=== PATIENT | male | born 1960 | race Caucasian/White ===

== ENCOUNTER 2024-10-18 18:39 | Emergency (ER) | payer OTHER, MEDICARE ==
[~2024-10-18] VITALS: Ht 180.3 cm; Wt 123.9 kg
[2024-10-18 19:05] VITALS: TEMP 98.3
--- NOTE | 2024-10-18 19:24 | Physician Documentation ---
History of Present Illness ~ Chief Complaint: Knee Pain Stated Complaint: KNEE PAIN Time Seen by MD: 19:09 HPI This is a very pleasant 64-year-old gentleman who presented for evaluation of right leg pain and swelling for the last 24 hours. He recently had total knee arthroplasty done on [place] outside the [facility]. He was discharged, he was successfully doing physical therapy. Yesterday he was able to bend his knee to 90, he was able to ambulate with the assistance of a cane. Today he woke up and feels that he is tie swollen, he is experiencing pain as burning sensation on immediately thigh extending down into the knee. No particular palliating factors. Worse with range of motion and ambulation. No longer able to ambulate any reasonable distance. He is compliant with all his physical therapy and medications, he is taking apixaban. Denies any fever, chills, chest pain, difficulty breathing. Denies any nausea, vomiting, diarrhea, abdominal pain. No concern for tobacco, alcohol or illicit substances use. No prior history of DVT or PE. Medication Reconciliation Allergies: Coded Allergies: No Known Allergies (Unverified , 10/18/24) Review of Systems ROS 10 point review of systems was performed and unless noted above in HPI is negative for acute process/complaint. Physical Exam Vital Signs: Temperature: 98.3, Source: Oral, Heart Rate: 59, Respiratory Rate: 17, BP: 166/77, Pulse Oximetry: 98, Weight: 123.900 Physical Exam GENERAL: Awake, alert, oriented, GCS 15, no apparent distress, non-toxic appearing, answers questions, follows commands appropriately. Examined in triage, accompanied by HEENT: Atraumatic, normocephalic, pupils equal, extraocular muscles intact, sclerae anicteric, mucus membranes moist, oropharynx is clear, no stridor. NECK: supple, full active range of motion, trachea midline, no thyromegaly, no lymphadenopathy, no JVD. CARDIOVASCULAR: regular rate/rhythm, no murmurs/gallops/rubs, Pulses are 2+ in all extremities and symmetric. Capillary refill less than 2 seconds. PULMONARY: Nonlabored, good air movement ,no respiratory distress, speaking in full sentences, clear to auscultation bilaterally, no wheezing, no ronchi, no rales, no accessory muscle use. GASTROINTESTINAL: Soft, non-tender, non-distended, normal active bowel sounds, no organomegaly, no pulsatile masses, no CVA tenderness. NEUROLOGIC: Lucid with normal mental status. Normal facial symmetry. Moves all extremities symmetrically and with purpose. No truncal ataxia. Speech is fluid without evidence of dysarthria or aphasia, no focal deficits appreciated. MUSCULOSKELETAL: There is full range of motion of all extremities. There is no joint pain or joint swelling or joint erythema. There is no muscle pain or tenderness or swelling. EXTREMITIES: warm, well-perfused, no cyanosis, no clubbing, no edema, no acute deformities. Skin: warm, dry, no rashes or lesions, no jaundice, no petechiae orpurpura. No ecchymosis. PSYCHIATRIC: Normal affect, normal insight, normal concentration. Focused exam: [Right knee is examined. There is no appreciable swelling compared to contralateral side. No tenderness, no purulent discharge. Surgical dressing appears to be clean, dry, intact. Neurovascularly intact distally. I do not appreciate any erythema or calor.] Progress Progress Note EKG was obtained and interpreted by myself showing sinus rhythm of 60, normal RI interval, narrow QRS, no QT prolongation, normal axis, there is no STEMI, however this pronounced Q-wave in two and AVF. Results/Orders Results/Orders Orders - ZACHERY PETERSEN DO Culture Blood (10/18/24 19:09) Vl Venous (10/18/24 19:09) Ct Lower Extremity (10/18/24 21:40) Completed Orders - ZACHERY PETERSEN DO Electrocardiogram (10/18/24:) Cbc/Diff (10/18/24 19:) ESR (10/18/24 19:09) D-Dimer (10/18/24 19:09) C-Reactive Protein (10/18/24 19:09) Pt Inr (10/18/24 19:09) PTT (10/18/24 19:09) PBNP (10/18/24 19:09) MG (10/18/24 19:09) CMP (10/18/24 19:09) Hs Troponin I W Calculations (10/18/24 19:09) Hs Troponin I W Calculations (10/18/24 21:09) Lacticsepsis (10/18/24 19:09) Vl Venous (10/18/24 19:09) Ct Lower Extremity (10/18/24 21:40) CK (10/18/24 19:25) Iohexol 300mg/Ml 100ml Inj. (Omnipaque-3 (10/18/24 20:15) Vital Signs 10/18/24 10/18/24 10/18/24 10/18/24 19:05 20:59 21:54 22:00 Temp 98.3 Pulse 59 62 Resp 17 18 16 B/P (MAP) 166/77 144/58 (86) Pulse Ox 98 98 10/18/24 23:26 Pulse 58 Resp 16 B/P (MAP) 149/66 (93) Pulse Ox 96 Laboratory Tests Test 10/18/24 19:43 10/18/24 21:21 White Blood Count 9.3 Red Blood Count 3.75 L Hemoglobin 11.6 L Hematocrit 33.4 L Mean Corpuscular Volume 89.2 Mean Corpuscular Hemoglobin 30.9 Mean Corpuscular Hemoglobin Concent 34.6 Red Cell Distribution Width 13.7 Platelet Count 306 Mean Platelet Volume 7.5 Neutrophils (%) (Auto) 81.1 H Lymphocytes (%) (Auto) 9.3 L Monocytes (%) (Auto) 4.7 Eosinophils (%) (Auto) 4.1 Basophils (%) (Auto) 0.8 Neutrophils # (Auto) 7.6 Lymphocytes # (Auto) 0.9 L Monocytes # (Auto) 0.4 Eosinophils # (Auto) 0.4 Basophils # (Auto) 0.1 CBC Comment Erythrocyte Sedimentation Rate 38 H Prothrombin Time 10.0 INR International Normalized Ratio 1.0 Activated Partial Thromboplast Time 29 D-Dimer 10.22 H D-Dimer Comment Coagulation Comments Sodium Level 133 L Potassium Level 3.9 Chloride Level 95 L Carbon Dioxide Level 31.3 Anion Gap 7 L Blood Urea Nitrogen 15 Creatinine 0.91 Estimated GFR/1.73 m2 83 BUN/Creatinine Ratio 16.5 Glucose Level 100 Lactic Acid Level 0.6 Calcium Level 9.4 Magnesium Level 1.9 Total Bilirubin 0.7 Aspartate Amino Transf (AST/SGOT) 9 L Alanine Aminotransferase (ALT/SGPT) 20 Alkaline Phosphatase 87 Total Creatine Kinase 19 L Troponin I High Sensitivity 4 5 C-Reactive Protein 1.49 H Pro-B-Type Natriuretic Peptide 217 H Total Protein 7.7 Albumin 4.0 Globulin 3.7 Albumin/Globulin Ratio 1.1 Chemistry Comments Troponin I High Sens Percent Delta 25 Troponin I Hi Sens Absolute Change 1 Microbiology Date/Time Source Procedure Growth Status 10/18/24 19:45 Blood Arm Left Blood Culture - Preliminary NEGATIVE (LESS THAN 24 HOURS) Resulted Medical Decision Making Findings Facility Status: ED Holds, RME process The plan was discussed with the patient, who demonstrates clear understanding of the plan and is in agreement with the plan unless otherwise noted in the chart. All questions have been answered, all concerns were addressed unless otherwise documented. I was available throughout their ED stay for frequent reassessment and questions. Differential Diagnoses (considered and possible or likely): [Right lower extremity cellulitis, DVT, postoperative abscess, seroma, less likely os teomyelitis, less likely rhabdomyolysis or myositis.] ??Differential Diagnoses (considered and unlikely, not requiring evaluation currently): [No evidence of arterial occlusion, no evidence of neurologic damage] MDM Data Please see [facility] for the following: Independent Historians and external Records Re view. Historian: [Patient] Independent Historians: ?[] Medication Management: [Reviewed medication list] Social History and determinants: [Reviewed] Please see the body of the note for the following: Any independent interpretations of ECG, imaging studies. All vitals signs/haemodynamics, ordered tests were independently reviewed and interpreted by myself. Nursing triage complaint and vitals reviewed, additional nursing notes were reviewed as available and I agree unless otherwise noted or documented in contradiction in the chart Vital Signs: Independently reviewed Labs: Independently interpreted Imaging: Independently interpreted Old Medical Records: Independently reviewed, see [facility] for relevant summary and information Pulse Oximetry: [96%] interpreted as [normal on room air] by me [High Density Finishing Operator: [Regular Rate, Regular rhythm, no ectopy, NSR] reviewed and interpreted by me] Additionally notably showing: [Hemodynamics reviewed. She isn't febrile, not tachycardic, no evidence of hypotension respiratory distress. CBC normal ESR slightly elevated. D-dimer is markedly elevated. Coagulation panel is normal. D-dimer less likely attributable to recent surgery. Metabolic panel is unremarkable. CRP is elevated. BNP is minimally elevated. Initial and repeat troponins are negative. CK is normal decreasing suspicion for rhabdo. Lower extremity ultrasound was obtained showing no DVT. Lower extremity CT shows normal alignment, effusion with a some layering.] Tests considered but not ordered include: [Not applicable, exhaustive workup was obtained] Social Determinants of Health Impact: Patient was evaluated in [facility], or [facility] [place] to healthcare due to below par ratio of patient to medical providers. [] Comorbid Conditions Impacting Present Evaluation and Care/Treatment: [Total knee arthroplasty on October 02 2024] Management Discussions with other Healthcare Providers: [None] Treatment and Disposition Medication Management (Given or considered): []. See EMR for details Consideration for Hospitalization/Escalation/Deescalation of Care: Admission for observation has been considered, [however the patient is able to tolerate p.o., their symptoms are controlled, they are able to rely on oral medications, and their chief complaint/diagnosis can be managed on outpatient basis.] ?ED Course:?[No clinical deterioration. Desires to go home.] ?Shared decision making:?[Patient is hemodynamically stable for discharge home with follow with their primary care provider. [ ] Specific and cautious return precautions provided and discussed with full understanding. Any incidental findings were also discussed and follow up recommendations given. [] All questions answered. Patient/family were able to verbalize back return precautions. Patient/family agree to plan. Copies of imaging and laboratory studies were provided.] Code status:?FULL Please see the full Electronic Medical Record for full details of nursing documentation, medications list, other records of complete past medical history and conditions, vital signs, laboratory studies, and any radiologic study interpretations by radiologists. Portions of this note were completed using [employer] dictation software and as a result there may exist minor errors in spel ling. I have reviewed elements of past family and social history and agree as included in note. Departure Disposition: 01 HOME / SELF CARE / HOMELESS Impression: Primary Impression: Right leg pain Additional Impressions: Effusion of knee Elevated d-dimer Condition: Improved Discharge Instructions: Acute Knee Pain, Adult, Knee Effusion Additional Instructions: Please follow-up with your surgeon, discuss this visit. Referrals: NO PRIMARY CARE PROVIDER (PCP) Education Educated: Patient Educated regarding: diagnosis, treatment, prognosis, need for follow up Signature Scribe Signature: No scribe Attestation: Date: Oct 18, 2024 Time: 19:24 This note accurately reflects clinical decisions, work performed by myself, Zachery Petersen, ZACHERY FONTANEZ DO Oct 18, 2024 19:24
--- NOTE | 2024-10-18 19:27 | ELECTROCARDIOGRAPH REPORT ---
[facility] Test Date: 2024-10-18 Test Time: 19:24:30 Pat Name: KUNAL RODRIGUEZ Department: [facility]-ER Patient ID: [facility]-[id number] Room: Gender: M Training Development Director: : 1960 Requested By: EVERARDO PETERSEN Order Number: [id number] Reading MD: Measurements Intervals [place] Rate: 60 P: 24 GA: 170 QRS: -1 QRSD: 93 T: -15 QT: 453 QTc: 453 Interpretive Statements Sinus rhythm Left ventricular hypertrophy Anterolateral Q waves, probably due to LVH Nonspecific T abnormalities, inferior leads Baseline wander in lead(s) II,III,aVF,V1,V3,V4 Please click the below link to view image of tracing.
[2024-10-18 20:00] LABS: MEAN PLATELET VOLUME 7.5 FL (7.4-10.4); RED CELL DISTRIBUTION WIDTH 13.7 % (11.5-14.5)
[2024-10-18 20:06] LABS: CREATININE 0.91 MG/DL (0.60-1.10); TOTAL CARBON DIOXIDE 31.3 MMOL/L (24-32); eCRCL 85 ML/MIN; eGFR 83 ML/MIN
[2024-10-18 20:12] LABS: APTT 29 SECONDS (22-32); INR 1.0 INR
[2024-10-18 20:14] LABS: PRO BRAIN NATRIURETIC PEPTIDE 217 PG/ML (0-125)
[2024-10-18] MEDS ORDERED: iohexol 300mg/ml 100ml inj. ONE (20:15)
--- NOTE | 2024-10-18 22:34 | VASCULAR REPORT ---
CLINICAL HISTORY: Right lower extremity pain and swelling status post right knee replacement TECHNIQUE: Color and duplex doppler imaging of the right lower extremity veins was performed. Vessel compression if possible was also performed. WID: COMPARISON: CT CT LOWER EXTREMITY W/ IV CONTRAST on DOS: 10/18/24 FINDINGS: Contralateral Left common femoral vein: Normal flow and phasicity. Right common femoral vein: Normal compressibility and flow. Right femoral vein: Normal compressibility and flow. Right popliteal vein: Normal compressibility and flow. Proximal calf veins are normally compressible. IMPRESSION: 1. NO SONOGRAPHIC EVIDENCE FOR DEEP VENOUS THROMBOSIS IN THE RIGHT LOWER EXTREMITY VEINS.
--- NOTE | 2024-10-18 23:55 | RADIOLOGY REPORT ---
Procedure: CT CT LOWER EXTREMITY W/ IV CONTRAST 10/18/2024 09:33 PM Indication: s/p TKA, unprovoked pain and swelling knee and thigh Comparison Study: VASC VL VENOUS on DOS: 10/18/24 Technique: Axial CT images were obtained of the right knee with intravenous contrast and reformatted in coronal and sagittal planes. 100 mL Omnipaque [address] scans at this medical facility are performed using dose modulation techniques as appropriate to a performed exam including the follo wing: Automated exposure control was utilized; adjustment of the MA and/or KV according to patient si ze; and use of iterative reconstruction technique. CT Dose: CTDI volume is 10.15+ 0.14 mGy. Dose-buddy th product is 399.49 mGy*cm FINDINGS: Bones: There is normal mineralization and alignment. There is a left knee arthroplasty in place. Ther e is no acute fracture. No periprosthetic lucency. Soft tissues: There is a moderate right knee joint effusion with mild right synovial thickening. Ther e is mild intermediate density layering in the right knee joint there is subcutaneous edema about the right knee. The Muscle bundles about the right knee are intact. No soft tissue gas IMPRESSION: 1. Prior right knee arthroplasty. Normal alignment. No periprosthetic lucency or fracture. 2. Moderate right knee joint effusion with mild right synovial thickening and intermediate density la yering in the right knee joint which could reflect blood products or proteinaceous contents.
[2024-10-19 00:42] VITALS: BP 151/63; PULSE 74; RESP 16; O2SAT 98
== END 2024-10-19 00:44 | disposition home or self-care (01) ==
LOC: ER 18:40
DX: M25.461 Effusion, right knee (principal); R79.89 Other specified abnormal findings of blood chemistry; R06.02 Shortness of breath
CPT/HCPCS: 36415; 72132; 80053; 82550; 83605; 83735; 83880; 84484; 85025; 85379; 85610; 85651; 85730; 86140; 87040; 93005; 93971; 99285; Q9967